=== PATIENT | female | born 1985 | race Caucasian/White ===

== ENCOUNTER 2017-05-09 17:17 | Emergency (ER) | payer OTHER ==
[~2017-05-09] VITALS: Ht 160 cm; Wt 52.2 kg
--- NOTE | ~2017-05-09 | CT71 ---
[facility] A Service of [facility] RADIOLOGY TEXT RESULTS PATIENT: YO ACEVES LOCATION: SED : 85 UNIT #: [id number] AGE: [address]: Isabela Morris SEX: F ORDER DR: [id number] [place] [id number] E MR#: [id number] Acc #: [id number] NAME: YO ACEVES : 1985 SEX: F STUDY DATE/TIME: 05/09/2017 19:07 UNIT: SED ROOM: STUDY DESCRIPTION: CT Head Wo Contrast Attending Physician: Isabela Morris Pa-C Ordering Physician: Isabela Morris Pa-C Primary Care Physician: Adore Parra M.D. MEDICAL IMAGING REPORT This report is preliminary unless electronic signature is present. EXAM CT head 05/09/2017 HISTORY Vomiting, headache times today. TECHNIQUE CT head performed skull base through vertex without intravenous contrast. This CT exam was performed with one or more of the following radiation dose reduction techniques: Automatic exposure control, adjustment of mA and/or kV according to patient size, and iterative reconstruction. COMPARISON 12/14/2014 FINDINGS Brainstem unremarkable. Cerebellum and cerebral hemispheres show normal la matter-white matter differentiation. No hemorrhage. No evidence of acute cortical ischemia. Midline structures nondisplaced. Basal ganglia intact. Ventricles, cisterns, sulci normal in size and contour. No intra- or extraaxial mass effect or abnormal intracranial fluid collection. Study somewhat degraded by streak artifact. No overall change in appearance from 2014. Intraorbital soft tissues unremarkable. Visualized paranasal sinuses and mastoid air cells clear. IMPRESSION 1. Allowing for streak artifact, normal CT of head. No significant change compared to November 2014. Dictated by... Mohsen Condon M.D. [facility] A Service [facility] RADIOLOGY TEXT RESULTS PATIENT: YO ACEVES LOCATION: SED : 85 UNIT #: [id number] AGE: [address]: Isabela Morris SEX: F ORDER DR: THIS IS AN ELECTRONICALLY VERIFIED REPORT Mohsen Condon M.D. at 05/11/2017 7:36 AM Emmanuel TD: 05/10/2017 08:56 JOB #: [id number] MEDICAL IMAGING REPORT Page 1 of 1
--- NOTE | ~2017-05-09 | CT2 ---
[facility]. [facility] A Service [facility] RADIOLOGY TEXT RESULTS PATIENT: YO ACEVES LOCATION: SED : 85 UNIT #: [id number] AGE: [address]: Isabela Morris SEX: F ORDER DR: [id number] [place] [id number] E MR#: [id number] Acc #: [id number] NAME: YO ACEVES : 1985 SEX: F STUDY DATE/TIME: 05/09/2017 19:10 UNIT: SED ROOM: STUDY DESCRIPTION: CT Abd and Pelv W Cont Attending Physician: Isabela Morris Pa-C Ordering Physician: Isabela Morris Pa-C Primary Care Physician: Adore Parra M.D. MEDICAL IMAGING REPORT This report is preliminary unless electronic signature is present. EXAM CT abdomen and pelvis with contrast 05/09/2017 19:10 hours. HISTORY 31-year-old with history of headache and vomiting today. COMPARISON None. TECHNIQUE Dynamic helical CT images were obtained from the lung bases through the pubic symphysis with intravenous contrast. Sagittal and coronal reconstructions were performed. Contrast was Isovue-370 100 mL IV. Total exam DLP 564 mGy-cm. This CT exam was performed with one or more of the following radiation dose reduction techniques: automatic exposure control, adjustment of mA and/or kV according to patient size, and iterative reconstruction. FINDINGS Images through the lung bases are clear. There are no effusions. The distal esophagus is normal. Images through the abdomen demonstrate a normal appearance to the liver, spleen, pancreas, gallbladder and bile ducts. The adrenal glands are normal. The kidneys enhance normally. There is no renal mass, stone or dilatation. There is no ureterectasis or ureteral calculus. The stomach is contracted and unopacified. There is fluid in the fundus. No gastric wall thickening is seen. There is no small bowel distension or small bowel wall thickening. The terminal ileum, cecum are normal. No [facility] A Service of [facility] RADIOLOGY TEXT RESULTS PATIENT: YO ACEVES LOCATION: [facility] : [birth year] UNIT #: [id number] AGE: [address]: Isabela Morris SEX: F ORDER DR: evidence of appendicitis. CT pelvis demonstrates a retroverted uterus with prominent endometrial cavity. Correlate with timing of menstrual cycle. There is a trace of fluid in the cul-de-sac. There are small follicular cysts on the ovaries. IMPRESSION 1. No acute findings in the abdomen. 2. There is a retroverted uterus with prominent endometrial cavity. Suggest correlation with timing of menstrual cycle. There is trace fluid in the cul-de-sac. There is no adnexal lesion. 3. No renal or ureteral calculi. Dictated by... Dolores Toro M.D. THIS IS AN ELECTRONICALLY VERIFIED REPORT Dolores Toro M.D. at 05/10/2017 9:08 AM Marisabel TD: 05/10/2017 08:47 JOB #: [id number] MEDICAL IMAGING REPORT Page 1 of 1
[~2017-05-09 17:17] MED LIST: BACTRIM DS TABL1 TA2 PO; FLEXERIL PO; NO MEDICATIONS; ROBAXIN 750750 MG PO; ULTRACET TABLET1 TAB PO; VOLTAREN75 MG PO; [UNRECOGNIZED DRUG - OTHER] OD
[2017-05-09 17:59] LABS: BASOPHIL% 0.4 % (0-2.5); EOSINOPHIL# 0.1 X10e3 (0-0.7); EOSINOPHIL% 0.8 % (0.0-7.0); HEMATOCRIT 42.6 % (35.0-45.0); HEMOGLOBIN 14.4 gm/dL (12.0-16.0); LYMPHOCYTE# 1.3 X10e3 (1.0-3.5); LYMPHOCYTE% 16.2 % (17.0-45.0); MEAN CELL VOLUME 94.3 FL (83-96); MEAN CORPUSCULAR HEMOGLOBIN 31.9 PG (28-34); MEAN CORPUSCULAR HGB CONC 33.8 g/dL (30-36); MEAN PLATELET VOLUME 9.5 FL (6.5-11.5); MONOCYTE# 0.4 X10e3 (0-1.0); NEUTROPHIL% 77.6 % (40-75); PLATELET COUNT 239 X10e3 (140-420); RED BLOOD COUNT 4.52 X10e (3.90-5.30); RED CELL DISTRIBUTION WIDTH 13.6 % (11.0-15.5); WHITE BLOOD COUNT 7.8 X10e3 (4.0-10.5)
[2017-05-09 18:18] LABS: DIFF IND NO
[2017-05-09 18:28] LABS: ALBUMIN SERUM 4.8 g/dL (3.5-5.0); ALKALINE PHOSPHATASE 48 U/L (32-92); ALT (SGPT) 16 U/L (10-40); AST (SGOT) 22 U/L (10-42); BILIRUBIN,TOTAL 0.6 mg/dL (0.2-2.0); BLOOD UREA NITROGEN 11 mg/dL (9-23); BUN/CREATININE RATIO 18.33; CALCIUM SERUM 9.6 mg/dL (8.4-10.2); CARBON DIOXIDE 24 mmol/L (22-31); CHLORIDE 105 mmol/L (100-111); CREATININE SERUM 0.6 mg/dL (0.6-1.4); GLOM FILT RATE Estimated 121.5 mL/min (>60); GLUCOSE FASTING 124 mg/dL (70-110); LIPASE 21 U/L (22-51); POTASSIUM 3.2 mmol/L (3.5-5.1); PROTEIN TOTAL SERUM 7.8 g/dL (6.0-8.3); SODIUM 138 mmol/L (135-145)
[2017-05-09 18:50] LABS: BILIRUBIN, DIRECT <0.1 mg/dL (0.0-0.2); BILIRUBIN,INDIRECT 0.5 mg/dL (0.0-0.9)
[2017-05-09 18:52] LABS: URINE SOURCE CLEAN CATCH
[2017-05-09 18:54] LABS: URINE APPEARANCE HAZY; URINE BILIRUBIN NEG (NEG); URINE BLOOD NEG (NEG); URINE COLOR YELLOW; URINE GLUCOSE NEG (NORM); URINE KETONE 1+ (NEG); URINE LEUKOCYTE ESTERASE TRACE (NEG); URINE NITRATE NEG (NEG); URINE PH 7.5 (5-8); URINE PROTEIN NEG (NEG); URINE SPECIFIC GRAVITY 1.015 (1.003-1.035); URINE UROBILINOGEN 0.2 MG/DL (NORM)
[2017-05-09 19:01] LABS: MICRO INDICATED? YES
[2017-05-09 19:03] LABS: CULTURE INDICATED? NO; URINE BACTERIA NEG (NEG); URINE MUCUS PRESENT; URINE RBC 0-2 /[HPF] (0-2); URINE SQUAMOUS EPITHELIAL CELL MANY /[HPF]
== END 2017-05-09 20:07 | disposition home or self-care (01) ==
LOC: SED 17:17
PROVIDERS: Physician Assistant
DX: R10.9 Unspecified abdominal pain (principal); R11.2 Nausea with vomiting, unspecified; R51 Headache
CPT/HCPCS: 36415; 70450; 74177; 80048; 80076; 81003; 83690; 84703; 85025; 96361; 96374; 96375; 99284; J2270; J2405; Q9967